=== PATIENT | female | born 1980 | race Caucasian/White ===

== ENCOUNTER 2021-12-29 07:58 | Day surgery (SDC) | payer OTHER, SELFPAY ==
[2021-12-29] VITALS (8 sets, daily range): BP systolic 107–152; BP diastolic 75–109; PULSE 55–76; RESP 16–18; TEMP 36.4–36.5; O2SAT 94–100; BMI 32.8
[2021-12-29] MEDS: SODIUM CHLORIDE 0.9 % (FLUSH) 10 ML SYRINGE IVF (08:20)
[2021-12-29] MEDS: LACTATED RINGERS 1000 ML 1,000 ML 100 ML IV (08:20)
[2021-12-29] MEDS: fentaNYL 100 MCG/2 ML inj IVP (09:25)
[2021-12-29] MEDS: MIDAZOLAM HCL 1 MG/ML inj IVP (09:27)
--- NOTE | 2021-12-29 09:28 | SUR.PREOP ---
TIME?OUT:?0923 PT/Gonzalez NAIK RN/Tara BURGESS MDA?VERIFICATION?OF?SURGICAL?SITE,?PROCEDURE,?AND?CONSENT OBTAINED?PRIOR?TO?INVASIVE?PROCEDURE.
--- NOTE | 2021-12-29 09:30 | P.NB_ITS ---
Nerve Block Nerve Block Time Seen by Provider: 09:31 Date Seen: 12/29/21 Type of block requested by surgeon for post-operative analgesia: popliteal Side: right Time out performed: Yes Verification of patient name: Yes Verification of date of : Yes Site marking: site marked Name of person performing procedure: Levar Continuous monitoring Was continuous monitoring of O2 sat, B/P, potline monitor, recorded every 15 minutes?: Yes Procedure Checklist: sterile prep, needles and gloves Ultrasound guided. Images saved: Yes Medications given in 5ml increments after negative aspiration: Ropivicaine %: 0.5 mL: 20 Needle gauge: 22 Patient tolerated procedure well: Yes Additional comments: Needle noted adjacent to nerve Block Charges Block Charge (with Pro Fee): Sciatic Nerve Use of Ultrasound Machine for Block: Yes- US Guidance/pain block
[2021-12-29] MEDS: CEFAZOLIN 2 GM INJ IVP (10:20)
--- NOTE | 2021-12-29 10:31 | CRLHL7_ITS ---
For Patients: As a result of the Cures Act, medical imaging exams and procedure reports are released immediately into your electronic medical record. You may view this report before your referring provider. If you have questions, please contact your health care provider. Indication: RT CALCANEUS tumor excision Technique: Five fluoroscopic images the right calcaneus. Fluoroscopic time 23.7 seconds. IMPRESSION: Fluoroscopic guidance for curettage of calcaneal lesion with methylmethacrylate and malleable plate hardware placement. Dictated by Valdez Mckeon MD @ 12/29/2021 12:40:20 PM (Electronically Signed)
[2021-12-29] MEDS: BUPIVACAINE 0.5% 30 ML 16 ML INJECTION (11:12)
--- NOTE | 2021-12-29 12:14 | W.ANESCHARGE ---
Anesthesia Charges Start Date/Time Anesthesia Start Date: 12/29/21 Anesthesia Start Time: 10:08 Stop Date/Time Anesthesia Stop Date: 12/29/21 Anesthesia Stop Time: 12:13 Summary Emergency: No
--- NOTE | 2021-12-29 12:38 | W.ANESCHARGE ---
Anesthesia Charges Start Date/Time Anesthesia Start Date: 12/29/21 Anesthesia Start Time: 10:08 Stop Date/Time Anesthesia Stop Date: 12/29/21 Anesthesia Stop Time: 12:13 Summary Emergency: No
--- NOTE | 2021-12-29 16:59 | P.GSOP_ITS ---
Operative Note Date of procedure: 12/29/21 Type of Procedure: 1. Curettage and packing right calcaneal cyst 2. Instep plantar fasciotomy right Procedure Description: Preoperative diagnosis: Bone tumor cyst right calcaneus, plantar fasciitis right Postoperative diagnosis: Bone cyst right calcaneus, plantar fasciitis right Procedure: Curettage and packing right calcaneal cyst, instep plantar fasciotomy right foot After discussing the risks and benefits of the procedure, the patient signed informed consent.? The operative site was marked and the patient was brought to the operating room and placed on the operating table in supine position.? Care was taken to pad the patient's pressure points.?? The patient was then [intubated/given sedation] by anesthesia.?? She had preoperative popliteal block by Anesthesia. An additional 16 mL of 0.5% Marcaine plain were injected into the right foot. The operative site was then prepped and draped in the usual sterile fashion.? A time-out was then performed. The right foot was exsanguinated and the tourniquet inflated. C-arm assisted location of the lesion in the calcaneus. Central portion of the lesion identified and this was the central area of our incision. We did cheat the incision slightly proximal to avoid the peroneus longus tendon. Incision was carried down through skin subcutaneous tissues. Neurovascular structures and tendinous structures were retracted superiorly. The lateral cortical wall of the calcaneus was identified. Using a sagittal saw a 1 cm x 1 cm x 1 cm sq window was cut and the cortical bone removed. Small amount of serosanguineous fluid was within the calcaneus. No evidence of some eye lipomatous mass. 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 He has a curette and freshened and scraped all the sites. There was a central wall of cancellous bone that I carefully pushed through this opened up into a large void medially but again was a cystic and was not lipomatous. Once the 3 main areas of the cyst evidence great and portion sent for pathologic review C-arm was utilized identify the far aspects destruction. This corresponded with the MRI and no further debridement needed. We thoroughly irrigated with normal sterile saline and suctioned all crevices. Next we prepped the Hermila HydroSet bone cement and at the appropriate time injected this into all areas of the cyst. C- arm confirmed that the HydroSet floated all areas and filled the void. Used a [place]wood to pack the last portion and create a space for the cortical window to be placed back on. Once in place a 4 hole plate was applied with 2 mm screws to keep it from drifting. We thoroughly irrigated normal sterile saline. Subcutaneous tissues reapproximated with 4-0 Monocryl and skin closed with 4-0 Prolene. Small 2 cm linear incision was made the instep of the arch just distal to the plantar fat pad and slightly medial overlying the central medial band of the plantar fascia. Incision was carried down through skin subcutaneous tissues and blunt dissection was carried down to the plantar fascia. Using scalpel the medial central bands were transected releasing the plantar fascia. Significant gap was noted and no section of the fascia required excision. I thoroughly irrigated normal sterile saline the skin was closed with 3-0 nylon. Sterile dressing was then applied. She was placed in a well-padded CAM boot. ? The patient was then woken and transported to the recovery area in stable condition. The patient tolerated the procedure well. She is partial weight- bearing with crutch assistance in the Cam boot. She is given both written and verbal postop instructions. She is given oxycodone for pain. She will take aspirin 81 mg x 2 once daily starting tomorrow. She will follow up in 2 days time. Findings: Cystic area of the right calcaneus. Complications: None apparent Hemostasis: Ankle tourniquet 250 mm Hg. Implants: Hermila 4 hole miniplate with 2.0 mm screws x2. Anesthesia: MAC and regional Surgeon: Frank Richardson DPM Estimated blood loss (mL): 2 Condition: stable Disposition: same day
== END 2021-12-29 13:05 | disposition home or self-care (01) ==
LOC: OR 07:59
PROVIDERS: PCP Internal Medicine; Visit Provider Podiatrist
PROC: (CPT 28300; principal; 2021-12-29 09:30)
PROC: (CPT 28119; 2021-12-29 09:30)
DX: M85.671 Other cyst of bone, right ankle and foot (principal); M72.2 Plantar fascial fibromatosis
CPT/HCPCS: 28119; 01480; 64445; 73650; 76000; 76942; 97116; 97161; A4580; C1713; J0690; J1100; J2250; J2405; J2704; J2795; J3010; J3490; J7120

== ENCOUNTER 2022-05-08 14:39 | Outpatient (CLI) | payer OTHER, SELFPAY ==
--- NOTE | 2022-05-08 | CRLHL7_ITS ---
For Patients: As a result of the Century Cures Act, medical imaging exams and procedure reports are released immediately into your electronic medical record. You may view this report before your referring provider. If you have questions, please contact your health care provider. BILATERAL SCREENING MAMMOGRAM WITH COMPUTER-AIDED DETECTION AND TOMOSYNTHESIS TECHNIQUE: CC and MLO views were obtained. These mammographic images have been obtained using full-field digital technique. These mammographic images were interpreted with the benefit of computer-aided detection. Breast Tomosynthesis was used in this interpretation. COMPARISON FILM: 04/22/21, 12/18/19, 12/05/18. FINDINGS: There are scattered areas of fibroglandular density IMPRESSION: There is no radiographic evidence for malignancy. ASSESSMENT: BI-RADS Category 1: Negative RECOMMENDATION: Routine screening mammogram in 1 year. A lay language report of this examination will be provided to the patient. Real Gilman M.D. Diagnostic/Nuclear Medicine Radiologist [email or web address] SEBASTIEN/Dictated by: Real Gilman MD @ 05/11/2022 8:32:00 AM (Electronically Signed)
== END 2022-05-08 14:40 | disposition home or self-care (01) ==
LOC: MAMMO 14:40
PROVIDERS: PCP Internal Medicine; Visit Provider Internal Medicine
DX: Z12.31 Encounter for screening mammogram for malignant neoplasm of breast (principal)
CPT/HCPCS: 77063; 77067

== ENCOUNTER 2022-05-20 07:40 | Outpatient (CLI) | payer OTHER, SELFPAY | END 2022-05-20 07:41 | disposition home or self-care (01) | LOC: NFLDREF 05-22 13:43 | PROVIDERS: PCP Internal Medicine; Referring Provider Internal Medicine; Visit Provider Internal Medicine | DX: Z00.00 Encounter for general adult medical examination without abnormal findings (principal); E78.5 Hyperlipidemia, unspecified; K76.0 Fatty (change of) liver, not elsewhere classified; E66.9 Obesity, unspecified | CPT/HCPCS: 80061; 84450; 84460 ==

== ENCOUNTER 2023-05-28 08:30 | Outpatient (CLI) | payer OTHER, SELFPAY | END 2023-05-28 08:31 | disposition home or self-care (01) | LOC: NFLDREF 12:03 | PROVIDERS: PCP Internal Medicine; Referring Provider Internal Medicine; Visit Provider Internal Medicine | DX: E78.5 Hyperlipidemia, unspecified (principal); K76.0 Fatty (change of) liver, not elsewhere classified | CPT/HCPCS: 80061; 84450; 84460 ==

== ENCOUNTER 2023-08-20 07:35 | Outpatient (CLI) | payer OTHER, SELFPAY ==
--- OUTSIDE RECORDS SUMMARY | 2023-08-24 16:16 | XMS_ITS | Clinical Summary ---
Author Organization [employer] [facility] Address [place], [place] [address] Care Team Providers Care Crabber Name Role Phone Jaky Carmichael MD Primary Care Provider +1- [phone] Allergies No known active allergies Medications Medication Sig Dispensed Refills Start Date End Date Status SUMAtriptan (Imitrex) 100 mg tablet Take 1 Tablet (100 mg) by mouth 2 times daily if needed for Migraine. Give at minimum 2hrs apart. Max Dose: 200mg per 24hrs. 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 30 Capsule 08/26/2020 Active ibuprofen (ADVIL; MOTRIN) 200 mg tablet Take 400 mg by mouth every 6 hours. Active simvastatin (ZOCOR) 10 mg tablet Take 10 mg by mouth at bedtime. 07/28/2021 Active durable medical equipment (DME)Indications:S /P foot surgery, right PLANTAR FASCIITIS NIGHT SPLINT, MEDIUM, REF: [id number] 1 Each 01/14/2022 Active Immunizations Name Administration Dates Next Due Hepatitis B (Adult) 07/05/2001,01/17/2001,2000 MMR 11/22/1990,01/18/1980 Td (Age >=7 Years) 05/22/1999 Social History Tobacco Use Types Packs/Day Years Used Date Smoking Tobacco: Former Cigarettes 0.1 3 Smokeless Tobacco: Never Tobacco Cessation:Counseling Given: Yes Alcohol Use Standard Drinks/Week Comments Yes 0 (1 standard drink = 0.6 oz pur e alcohol) Sex and Gender Information Value Date Recorded Sex Assigned at Not on file Gender Identity Not on file Sexual Orientation Not on file Obstetrics History Last Filed Vital Signs Vital Sign Reading Time Taken Comments Blood Pressure 161/104 04/01/2022 1:06 PM LATEX RIBBON MACHINE OPERATOR Pulse 77 04/01/2022 1:06 PM LATEX RIBBON MACHINE OPERATOR Temperature 37 ??C (98.6 ??F) 01/14/2022 10:20 AM CDT Respiratory Rate 16 03/11/2021 11:15 AM LATEX RIBBON MACHINE OPERATOR Oxygen Saturation 100% 04/01/2022 1:06 PM LATEX RIBBON MACHINE OPERATOR Inhaled Oxygen Concentration - - Weight 97.1 kg (214 lb) 08/06/2021 10:45 AM CDT Height 170.2 cm (5' 7) 03/11/2021 7:25 AM LATEX RIBBON MACHINE OPERATOR Body Mass Index 33.52 03/11/2021 7:25 AM LATEX RIBBON MACHINE OPERATOR Plan of Treatment Health Maintenance Due Date Last Done Comments Tdap 1989 Depression screening for age 12+ 1990 HIV for age 15-65 1993 Hepatitis C screening for ag e 18-79 1996 Pap test for age 21-65 10/03/1999 Tetanus booster 05/21/2009 05/22/1999 BMI (ht and wt on same day) for age 18+ 02/10/2022 02/10/2021 COVID-19 vaccine series (2022- season) 2022 02/14/2021 Influenza for age 9-49 11/14/2023 Pneumococcal series for age 6-64 Aged Out No longer eligible based on patient's age to complete this topic Care Teams Crabber Relationship Specialty Start Date End Date Jaky Carmichael MD [address] [place] [address] PCP - General Internal Medicine 12/31/21
== END 2023-08-20 07:36 | disposition home or self-care (01) ==
LOC: NFLDREF 08-24 16:15
PROVIDERS: PCP Internal Medicine; Referring Provider Internal Medicine; Visit Provider Internal Medicine
DX: E78.5 Hyperlipidemia, unspecified (principal)
CPT/HCPCS: 80061; 84450; 84460

== ENCOUNTER 2023-08-31 14:49 | Outpatient (CLI) | payer OTHER, SELFPAY ==
--- OUTSIDE RECORDS SUMMARY | 2023-08-31 14:51 | XMS_ITS | Clinical Summary ---
Author Organization [employer] [facility] [employer] Address [place], [place] [address] Care Team Providers Care Conveyor Worker Name Role Phone Jaky Carmichael MD Primary Care Provider +1- [phone] Allergies No known active allergies Medications Medication [...] right PLANTAR FASCIITIS NIGHT SPLINT, MEDIUM, REF: [id number] 1 Each 01/14/2022 Active Immunizations Name Administration [...] Comments Blood Pressure 161/104 04/01/2022 1:06 PM SALES ENABLEMENT MANAGER Pulse 77 04/01/2022 1:06 PM SALES ENABLEMENT MANAGER Temperature 37 ??C (98.6 ??F) 01/14/2022 10:20 AM CDT Respiratory Rate 16 03/11/2021 11:15 AM SALES ENABLEMENT MANAGER Oxygen Saturation 100% 04/01/2022 1:06 PM SALES ENABLEMENT MANAGER Inhaled Oxygen Concentration - - Weight 97.1 kg (214 lb) 08/06/2021 10:45 AM CDT Height 170.2 cm (5' 7) 03/11/2021 7:25 AM SALES ENABLEMENT MANAGER Body Mass Index 33.52 03/11/2021 7:25 AM SALES ENABLEMENT MANAGER Plan of Treatment Health Maintenance Due Date [...] age to complete this topic Care Teams Conveyor Worker Relationship Specialty Start Date End Date Jaky Carmichael MD [address] [place] [address] PCP - General Internal Medicine 12/31/21
--- NOTE | 2023-08-31 15:00 | CRLHL7_ITS ---
For Patients: As a result of the Century Cures Act, medical imaging exams and procedure reports are released immediately into your electronic medical record. You may view this report before your referring provider. If you have questions, please contact your health care provider. BILATERAL SCREENING MAMMOGRAM WITH COMPUTER-AIDED DETECTION AND TOMOSYNTHESIS TECHNIQUE: CC and MLO views were obtained. These mammographic images have been obtained using full-field digital technique. These mammographic images were interpreted with the benefit of computer-aided detection. Breast tomosynthesis was used in this interpretation. COMPARISON FILM: 05/08/22, 04/22/21, 12/18/19. FINDINGS: There are scattered areas of fibroglandular density. IMPRESSION: There is no radiographic evidence for malignancy. ASSESSMENT: BI-RADS Category 1: Negative RECOMMENDATION: Routine screening mammogram in 1 year. A lay language report of this examination will be provided to the patient. VALDEZ HUMPHREY M.D. Diagnostic Radiologist [email or web address] Transcribed: 2:[address]/Dictated by: Valdez Humphrey MD @ 09/01/2023 12:50:00 PM (Electronically Signed)
== END 2023-08-31 14:50 | disposition home or self-care (01) ==
LOC: MAMMO 14:50
PROVIDERS: PCP Internal Medicine; Visit Provider Internal Medicine
DX: Z12.31 Encounter for screening mammogram for malignant neoplasm of breast (principal)
CPT/HCPCS: 77063; 77067

== ENCOUNTER 2023-12-16 06:31 | Outpatient (CLI) | payer OTHER, SELFPAY ==
--- OUTSIDE RECORDS SUMMARY | 2023-12-16 06:33 | XMS_ITS | Clinical Summary ---
Author Organization [employer] [facility] Address [place], [place] [address] Care Team Providers Care Tree Trimmer Name Role Phone Jaky Carmichael MD Primary Care Provider +1- [phone] Allergies No known active allergies Medications Medication [...] right PLANTAR FASCIITIS NIGHT SPLINT, MEDIUM, REF: [id number] 1 Each 01/14/2022 Active Immunizations Name Administration [...] Comments Blood Pressure 161/104 04/01/2022 1:06 PM AUTOMATIC VULCANIZING OPERATOR Pulse 77 04/01/2022 1:06 PM AUTOMATIC VULCANIZING OPERATOR Temperature 37 ??C (98.6 ??F) 01/14/2022 10:20 AM CDT Respiratory Rate 16 03/11/2021 11:15 AM AUTOMATIC VULCANIZING OPERATOR Oxygen Saturation 100% 04/01/2022 1:06 PM AUTOMATIC VULCANIZING OPERATOR Inhaled Oxygen Concentration - - Weight 97.1 kg (214 lb) 08/06/2021 10:45 AM CDT Height 170.2 cm (5' 7) 03/11/2021 7:25 AM AUTOMATIC VULCANIZING OPERATOR Body Mass Index 33.52 03/11/2021 7:25 AM AUTOMATIC VULCANIZING OPERATOR Plan of Treatment Health Maintenance Due Date Last Done Comments Tdap 1989 Depression screening for age 12+ 1990 HIV for age 15-65 1993 Hepatitis C screening for ag e 18-79 1996 Pap test for age 21-65 10/03/1999 Tetanus booster 05/21/2009 05/22/1999 BMI (ht and wt on same day) for age 18+ 02/10/2022 02/10/2021 Colonoscopy through age 75 10/03/2023 Lipids for age 45-75 10/03/2023 Mammogram for age 45-75 10/03/2023 COVID-19 vaccine series ( season) 2023 02/14/2021 Influenza for age 9-49 11/14/2023 Pneumococcal series for age 6-64 Aged Out No longer eligible based on patient's age to complete this topic Care Teams Tree Trimmer Relationship Specialty Start Date End Date Jaky Carmichael MD [address] [place] [id number] PCP - General Internal Medicine 12/31/21
--- NOTE | 2023-12-16 07:51 | W.ANESCHARGE ---
Anesthesia Charges Start Date/Time Anesthesia Start Date: 12/16/23 Anesthesia Start Time: 07:20 Stop Date/Time Anesthesia Stop Date: 12/16/23 Anesthesia Stop Time: 07:49
--- NOTE | 2023-12-16 09:32 | W.ANESCHARGE ---
Anesthesia Charges Start Date/Time Anesthesia Start Date: 12/16/23 Anesthesia Start Time: 07:20 Stop Date/Time Anesthesia Stop Date: 12/16/23 Anesthesia Stop Time: 07:49
== END 2023-12-16 06:32 | disposition home or self-care (01) ==
LOC: OP CLINIC 06:32
PROVIDERS: PCP Internal Medicine; Visit Provider Surgery
DX: Z12.11 Encounter for screening for malignant neoplasm of colon (principal); D12.0 Benign neoplasm of cecum; D12.3 Benign neoplasm of transverse colon
CPT/HCPCS: 00811; 45385; 88305; J2704

== ENCOUNTER 2024-08-10 08:49 | Outpatient (CLI) | payer OTHER, SELFPAY | END 2024-08-10 08:50 | disposition home or self-care (01) | LOC: NFLDREF 08-15 07:48 | PROVIDERS: PCP Internal Medicine; Referring Provider Internal Medicine; Visit Provider Internal Medicine | DX: Z00.00 Encounter for general adult medical examination without abnormal findings (principal); K76.0 Fatty (change of) liver, not elsewhere classified; E78.5 Hyperlipidemia, unspecified; Z13.1 Encounter for screening for diabetes mellitus | CPT/HCPCS: 80061; 82947; 84450; 84460 ==

== ENCOUNTER 2024-09-12 14:48 | Outpatient (CLI) | payer OTHER, SELFPAY ==
--- NOTE | 2024-09-12 15:00 | CRLHL7_ITS ---
For Patients: As a result of the Century Cures Act, medical imaging exams and procedure reports are released immediately into your electronic medical record. You may view this report before your referring provider. If you have questions, please contact your health care provider. INDICATION: bilateral screening mammogram, asymptomatic 43 year old female COMPARISON: Baseline TECHNIQUE: Digital mammogram in CC and MLO projections including computer-aided detection (CAD) and tomosynthesis. BREAST COMPOSITION: There are scattered areas of fibroglandular density. FINDINGS: No suspicious findings. ASSESSMENT: BI-RADS 1 Negative RECOMMENDATION: Annual screening mammogram. A lay language report of this examination will be provided to the patient. Dictated by: Valdez Mckeon MD @ 09/13/2024 09:48:15 (Electronically Signed)
--- OUTSIDE RECORDS SUMMARY | 2024-09-13 00:30 | XMS_ITS | Clinical Summary ---
Author Organization [employer] [facility] [employer] Address [address] [place] [id number] Care Team Providers Care Retirement Plan Counselor Name Role Phone Jaky Carmichael MD Primary Care Provider +1- [phone] Allergies No known active allergies Medications SUMAtriptan (Imitrex) 100 mg tablet Take 1 Tablet (100 mg) by mouth 2 times daily if needed for Migraine. Give at minimum 2hrs apart. Max Dose: 200mg per 24hrs. 0 1 Active Graduated Compression StockingsIndica tions:AV malformation, peripheral, congenital (HC) 20-30 mm/Hg calf high or thigh high compression stockings - Venous insufficiency 6 Packet 1 Active celecoxib (CeleBREX) 100 mg capsuleIndicati ons:AV malformation, peripheral, congenital (HC) Take 1 Capsule (100 mg) by mouth 2 times daily if needed for Pain. 30 Capsule 1 Active ibuprofen (ADVIL; MOTRIN) 200 mg tablet Take 400 mg by mouth every 6 hours. Active simvastatin (ZOCOR) 10 mg tablet Take 10 mg by mouth at bedtime. 2 Active durable medical equipment (DME)Indication s:S/P foot surgery, right PLANTAR FASCIITIS NIGHT SPLINT, MEDIUM, REF: [id number] 1 Each 2 Active Immunizations Immunization Administration Dates Next Due Hepatitis B (Adult) 07/05/2001,01/17/2001,2000 MMR 11/22/1990,01/18/1980 Td (Age >=7 Years) 05/22/1999 Social History Tobacco Use Types Packs/Day Years Used Date Smoking Tobacco: Former Cigarettes 0.1 3 Smokeless Tobacco: Never Tobacco Cessation:Counseling Given: Yes Alcohol Use Standard Drinks/Week Comments Yes 0 (1 standard drink = 0.6 oz pur e alcohol) Comments No Sex and Gender Information Value Date Recorded Sex Assigned at Not on file Legal Sex Female 5:23 AM DIRECTOR MEDICAL SURGICAL Gender Identity Not on file Sexual Orientation Not on file Obstetrics History Last Filed Vital Signs Vital Sign Reading Time Taken Comments Blood Pressure 161/104 04/01/2022 1:06 PM DIRECTOR MEDICAL SURGICAL Pulse 77 04/01/2022 1:06 PM DIRECTOR MEDICAL SURGICAL Temperature 37 C (98.6 F) 01/14/2022 10:20 AM CDT Respiratory Rate 16 03/11/2021 11:15 AM DIRECTOR MEDICAL SURGICAL Oxygen Saturation 100% 04/01/2022 1:06 PM DIRECTOR MEDICAL SURGICAL Inhaled Oxygen Concentration - - Weight 97.1 kg (214 lb) 08/06/2021 10:45 AM CDT Height 170.2 cm (5' 7) 03/11/2021 7:25 AM DIRECTOR MEDICAL SURGICAL Body Mass Index 33.52 03/11/2021 7:25 AM DIRECTOR MEDICAL SURGICAL Plan of Treatment Health Maintenance Due Date Last Done Comments (IA) Tdap 1989 Depression screening for age 12+ [...] vaccine series ( season) 2023 02/14/2021 Influenza Vaccine (#1) 2024 Hepatitis B series for 19+ Completed 07/05, 01/17/2001, 11/30/2000 Pneumococcal series for age 6-49 Aged Out No longer eligible b ased on patient's age to complete this topic Care Teams Retirement Plan Counselor Relationship Specialty Start Date End Date Jaky Carmichael MD [address] [place], [place] [id number] PCP - General Internal Medicine 12/31/21
== END 2024-09-12 14:49 | disposition home or self-care (01) ==
LOC: MAMMO 14:49
PROVIDERS: PCP Internal Medicine; Visit Provider Internal Medicine
DX: Z12.31 Encounter for screening mammogram for malignant neoplasm of breast (principal)
CPT/HCPCS: 77063; 77067

== ENCOUNTER 2024-12-27 08:06 | Outpatient (CLI) | payer OTHER, SELFPAY | END 2024-12-27 08:07 | disposition home or self-care (01) | LOC: NFLDREF 12-29 09:33 | PROVIDERS: PCP Internal Medicine; Referring Provider Internal Medicine; Visit Provider Internal Medicine | DX: I10 Essential (primary) hypertension (principal) | CPT/HCPCS: 80048 ==